=== PATIENT | female | born 1975 | race Caucasian/White ===

== ENCOUNTER → 2020-11-15 12:02 | Outpatient (CLI) | payer BC, SELFPAY ==
--- NOTE | ~2020-11-15 | US_ITS ---
EXAMINATION: US transvaginal DATE: 11/15/2020 12:20 INDICATION: Menorrhagia Comparison:04/04/2026 TECHNIQUE: Multiple transabdominal and endovaginal sonographic images of the pelvis performed. FINDINGS: The uterus measures 7.6 x 3.8 x 3.9 cm. The endometrial complex measures 7. The right ovary measures 1.3 x 1.2 x 1 cm and the left ovary measures 1.4 x 1.2 x 1 cm. There are sm all follicles in each ovary. Normal doppler signal in both ovaries. There is no free fluid in the pelvis. There are no abnormal masses seen on either side. IMPRESSION: 1. Normal pelvic ultrasound. Reviewed, dictated and finalized at location A.
== END ==
PROVIDERS: Visit Provider Nurse Practitioner
DX: N93.8 Other specified abnormal uterine and vaginal bleeding (principal)
CPT/HCPCS: 76830

== ENCOUNTER → 2022-04-19 11:16 | Outpatient (CLI) | payer BC, SELFPAY ==
--- NOTE | ~2022-04-19 | US_ITS ---
EXAMINATION: US soft tissue groin LT DATE: 04/19/2022 11:35 INDICATION: Left groin mass. TECHNIQUE: Multiple grayscale and Doppler ultrasound images of the left inguinal region were obtained . COMPARISON: None FINDINGS: Normal left inguinal lymph nodes are noted. IMPRESSION: 1. No abnormal left groin mass or lymphadenopathy. Reviewed, dictated and finalized at location A. [employer]
== END ==
PROVIDERS: PCP Family Medicine; Visit Provider Nurse Practitioner
DX: R59.0 Localized enlarged lymph nodes (principal)
CPT/HCPCS: 76882